=== PATIENT | male | born 1990 | race Caucasian/White ===

== ENCOUNTER 2019-04-21 07:27 | Emergency (ER) | payer BC ==
[2019-04-21] MEDS ORDERED: Acetaminophen 325 MG Tab PO ONE (07:41)
--- NOTE | 2019-04-21 07:55 | EDM.PDOC ---
ED [facility] GENERAL MEDICAL PROBLEM - General Chief Complaint: Chest Pain Stated Complaint: CHEST PAIN Time Seen by Provider: 04/21/19 07:52 Source of Information: Reports: Patient History Limitations: Reports: No Limitations - History of Present Illness INITIAL COMMENTS - FREE TEXT/NARRATIVE: Patient is a 29-year-old male with no past medical history presenting with a chief complaint of chest pain. Onset of chest pain was this morning after waking up. Pain is been ongoing for approximately 1 hour. Pain is located in the right side of the chest without radiation. Gradually got worse over time. Patient took ibuprofen with mild relief. Patient reports associated shortness of breath. Patient denies fevers, chills, coughing, nausea, vomiting, diaphoresis. Patient has no prior history of DVT or PE. Patient has no recent surgery or prolonged immobilization. Patient denies any drug use and states he has never had pain like this before. Patient denies any trauma to the chest. 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 Patient has no family history of cardiovascular disease or stroke. In addition to that documented in the HPI above, the additional ROS was obtained : Constitutional: Denies fevers or chills Eyes: Denies vision changes ENMT: Denies sore throat CV: Per HPI Resp: Per HPI GI: Denies vomiting or diarrhea : Denies painful urination MSK: Denies recent trauma Skin: Denies new rashes Neuro: Denies new numbness or tingling or weakness Endocrine: Denies unexpected weight loss Heme: Denies bleeding disorders I have reviewed the triage vital signs Const: Well nourished, well developed, appears stated age. Mild distress. Nontoxic in appearance. Eyes: PERRL, no conjunctival injection HENT: NCAT, Neck supple without meningismus CV: RRR, Warm, well-perfused extremities RESP: CTAB, Unlabored respiratory effort GI: soft, non-tender, non-distended, no masses MSK: No gross deformities appreciated Skin: Warm, dry. No rashes Neuro: Alert, vp & general counsel II-XII grossly intact. Sensation and motor function of extremities grossly intact. Psych: Appropriate mood and affect Assessment and plan: Patient is 29-year-old male presenting with chest pain. Patient has normal EKG. There is no evidence of ischemic changes. Patient labs were within normal limits other than slight hypokalemia. Patient had normal chest x-ray. At this point I do not suspect any pneumonia, pulmonary embolism, or ACS. Patient is PERC negative. Patient has a heart score of 1. Patient's pain improved while in the emergency department. Patient given strict return precautions. All questions dressed and answered. Patient agrees with plan. Chest Pain Pain Score (Numeric/FACES): 7 - Related Data Allergies Allergy/AdvReac Type Severity Reaction Status Date / Time Penicillins Allergy Cannot Verified 04/21/19 07:39 Remember Home Meds: Home Meds . [No Known Home Meds] 04/21/19 [History] Past Medical History - Past Health History Medical/Surgical History: Denies Medical/Surgical History - Infectious Disease History Infectious Disease History: Reports: None Social & Family History - Family History Family Medical History: Noncontributory - Tobacco Use Smoking Status *Q: Never Smoker - Caffeine Use Caffeine Use: Reports: Coffee - Recreational Drug Use Recreational Drug Use: No ED ROS GENERAL - Review of Systems Review Of Systems: See Below ED EXAM, GENERAL - Physical Exam Exam: See Below Course - Vital Signs Last Recorded V/S: Last Vital Signs Temp 36.3 C 04/21/19 07:40 Pulse 48 L 04/21/19 08:34 Resp 16 04/21/19 08:34 BP 107/70 04/21/19 08:34 Pulse Ox 100 04/21/19 08:34 - Orders/Labs/Meds Orders: Active Orders 24 hr Category Date Time Status EKG Documentation Completion [RC] STAT Care 04/21/19 07:46 Active Labs: Laboratory Tests 04/21/19 04/21/19 Range/Units 07:36 07:36 WBC 6.15 (4.0-11.0) K/uL RBC 4.38 L (4.50-5.90) M/uL Hgb 14.2 (13.0-17.0) g/dL Hct 40.8 (38.0-50.0) % MCV 93.2 (80.0-98.0) fL MCH 32.4 H (27.0-32.0) pg MCHC 34.8 (31.0-37.0) g/dL RDW Std Deviation 44.0 (28.0-62.0) fl RDW Coeff of Kaitlin 13 (11.0-15.0) % Plt Count 257 (150-400) K/uL MPV 10.40 (7.40-12.00) fL Neut % (Auto) 48.2 (48.0-80.0) % Lymph % (Auto) 37.1 (16.0-40.0) % [place] % (Auto) 12.4 (0.0-15.0) % Eos % (Auto) 2.1 (0.0-7.0) % Baso % (Auto) 0.2 (0.0-1.5) % Neut # (Auto) 3.0 (1.4-5.7) K/uL Lymph # (Auto) 2.3 (0.6-2.4) K/uL [place] # (Auto) 0.8 (0.0-0.8) K/uL Eos # (Auto) 0.1 (0.0-0.7) K/uL Baso # (Auto) 0.0 (0.0-0.1) K/uL Nucleated RBC % 0.0 /100WBC Nucleated RBCs # 0 K/uL Sodium 135 L (136-148) mmol/L Potassium 3.3 L (3.5-5.1) mmol/L Chloride 104 (98-107) mmol/L Carbon Dioxide 24.5 (21.0-32.0) mmol/L BUN 14 (7.0-18.0) mg/dL Creatinine 1.0 (0.8-1.3) mg/dL Est Cr Clr Drug Dosing 117.48 mL/min Estimated GFR (MDRD) > 60.0 ml/min Glucose 104 (74-106) mg/dL Calcium 8.3 L (8.5-10.1) mg/dL Total Bilirubin 0.3 (0.2-1.0) mg/dL AST 26 (15-37) IU/L ALT 50 (14-63) IU/L Alkaline Phosphatase 42 L (46-116) U/L Troponin I < 0.050 (0.000-0.056) ng/mL Total Protein 6.9 (6.4-8.2) g/dL Albumin 3.8 (3.4-5.0) g/dL Globulin 3.1 (2.6-4.0) g/dL Albumin/Globulin Ratio 1.2 (0.9-1.6) Meds: Medications Discontinued Medications Generic Name Dose Route Start Last Admin Trade Name Andi PRN Reason Stop Dose Admin Acetaminophen 650 mg 04/21/19 07:41 04/21/19 07:50 Tylenol PO 04/21/19 07:42 650 mg ONETIME ONE Administration Departure - Departure Time of Disposition: 08:39 Disposition: Home, Self-Care 01 Clinical Impression: Atypical chest pain Instructions: Nonspecific Chest Pain Referrals: PCP,None [Primary Care Provider] - Forms: ED Department Discharge Additional Instructions: The following information is given to patients seen in the emergency department who are being discharged to home. This information is to outline your options for follow-up care. We provide all patients seen in our emergency department with a follow-up referral. The need for follow-up, as well as the timing and circumstances, are variable depending upon the specifics of your emergency department visit. If you don't have a primary care physician on staff, we will provide you with a referral. We always advise you to contact your personal physician following an emergency department visit to inform them of the circumstance of the visit and for follow-up with them and/or the need for any referrals to a consulting specialist. The emergency department will also refer you to a specialist when appropriate. This referral assures that you have the opportunity for follow-up care with a specialist. All of these measure are taken in an effort to provide you with optimal care, which includes your follow-up. Under all circumstances we always encourage you to contact your private physician who remains a resource for coordinating your care. When calling for follow-up care, please make the office aware that this follow-up is from your recent emergency room visit. If for any reason you are refused follow-up, please contact the [facility] Emergency Department at and asked to speak to the emergency department charge nurse. Sepsis Event Note - Evaluation Sepsis Screening Result: No Definite Risk - Focused Exam Vital Signs: Vital Signs Temp Pulse Resp BP Pulse Ox 04/21/19 08:34 48 L 16 107/70 100 04/21/19 08:06 53 L 14 109/74 97 04/21/19 07:40 36.3 C 57 L 20 122/80 97 Date Exam was Performed: 04/21/19 Time Exam was Performed: 08:37 - My Orders Last 24 Hours: My Active Orders 04/21/19 07:46 EKG Documentation Completion [RC] STAT - Assessment/Plan Last 24 Hours: My Active Orders 04/21/19 07:46 EKG Documentation Completion [RC] STAT
--- NOTE | 2019-04-21 08:07 | CR ---
Chest: Portable view of the chest was obtained. Comparison: No prior chest x-ray. Heart size and mediastinum are normal. Lungs are clear. Bony structures are unremarkable. Impression: 1. Nothing acute is seen on portable chest x-ray. Diagnostic code #1 Study was dictated in [place] Standard Time
[2019-04-21 08:15] LABS: BLOOD UREA NITROGEN,BUN 14 mg/dL (7.0-18.0); CARBON DIOXIDE,CO2 24.5 mmol/L (21.0-32.0); CHLORIDE,CL 104 mmol/L (98-107); GLUCOSE RANDOM 104 mg/dL (74-106); POTASSIUM,K 3.3 mmol/L (3.5-5.1); SODIUM,NA 135 mmol/L (136-148)
== END 2019-04-21 08:50 | disposition home or self-care (01) ==
LOC: MW.ED 07:27
DX: R07.89 Other chest pain (principal); Z88.0 Allergy status to penicillin
CPT/HCPCS: 71045; 80053; 84484; 85025; 93005; 99285; A9270; 99284

== ENCOUNTER 2019-07-16 07:09 | Emergency (ER) | payer SELFPAY ==
[2019-07-16] MEDS: Famotidine 20 MG/2 ML SDV IVPUSH ONE (07:42)
[2019-07-16] MEDS: Ondansetron 4 MG/2 ML SDV IVPUSH ONE (07:42)
[2019-07-16] MEDS: Sodium Chloride 0.9% 1,000 ML IV ONE (07:42)
[2019-07-16] MEDS: Aluminum Hydroxide/Magnesium Hydroxide/Simethicone Susp 30 ML Cup PO ONE (07:43)
[2019-07-16] MEDS: Morphine 10 MG/ML Syringe IVPUSH ONE (08:01)
--- NOTE | 2019-07-16 08:01 | EDM.PDOC ---
ED [facility] GENERAL MEDICAL PROBLEM - General Chief Complaint: Abdominal Pain Stated Complaint: ABDOMINAL PAIN Time Seen by Provider: 07/16/19 08:00 Source of Information: Reports: Patient History Limitations: Reports: No Limitations - History of Present Illness INITIAL COMMENTS - FREE TEXT/NARRATIVE: Patient is 29-year-old male no significant past medical history presenting with chief complaint of abdominal pain. Patient states the abdominal pain started last night. The pain is located in epigastric region with radiation to the left upper quadrant. Pain is like a pressure sensation. Pain is not made worse by any particular time. Pain is associated with nausea and vomiting. Patient denies any fevers, cough, shortness of breath. Patient reports having a normal bowel movement yesterday. Patient reports he has passed gas numerous times today. Patient denies any history of similar pain. Patient took over-the -counter pain medication with little relief. Pmhx: None Pshx: None Family Hx: noncontributory Smoking history? no Etoh use? none Drug use? none In addition to that documented in the HPI above, the additional ROS was obtained : Constitutional: Denies fevers or chills Eyes: Denies vision changes ENMT: Denies sore throat CV: Denies chest pain Resp: Denies SOB GI: Per HPI : Denies painful urination MSK: Denies recent trauma Skin: Denies new rashes Neuro: Denies new numbness or tingling or weakness Endocrine: Denies unexpected weight loss Heme: Denies bleeding disorders I have reviewed the triage vital signs Const: Well nourished, well developed, appears stated age Eyes: PERRL, no conjunctival injection HENT: NCAT, Neck supple without meningismus CV: RRR, Warm, well-perfused extremities RESP: CTAB, Unlabored respiratory effort GI: soft, non-tender, non-distended, no masses MSK: No gross deformities appreciated Skin: Warm, dry. No rashes Neuro: Alert, scientific research manager II-XII grossly intact. Sensation and motor function of extremities grossly intact. Psych: Appropriate mood and affect Assessment and plan: Patient 29-year-old male presenting with abdominal pain. Patient's labs were unremarkable. Patient's emergency department stay was unremarkable. Patient had a CT scan performed for persistent abdominal pain requiring morphine for relief. CT scan demonstrated several gallstones in the neck of the gallbladder. Likely diagnosis symptomatic cholelithiasis there is no evidence of acute cholecystitis based on labs, vital signs, CT scan. No evidence of pancreatitis or hepatitis. Patient's pain improved and is tolerating p.o. The patient was referred to general surgery for follow-up care. Patient given return precautions and dietary education. All questions addressed and answered. Patient agrees with plan. abdomen Pain Score (Numeric/FACES): 8 - Related Data Allergies Allergy/AdvReac Type Severity Reaction Status Date / Time Penicillins Allergy Cannot Verified 07/16/19 07:25 Remember Home Meds: Home Meds . [No Known Home Meds] 04/21/19 [History] Past Medical History - Past Health History Medical/Surgical History: Denies Medical/Surgical History HEENT History: Reports: None Cardiovascular History: Reports: None Respiratory History: Reports: None Gastrointestinal History: Reports: None Genitourinary History: Reports: None Musculoskeletal History: Reports: None Neurological History: Reports: None Psychiatric History: Reports: None Endocrine/Metabolic History: Reports: None Hematologic History: Reports: None Immunologic History: Reports: None Oncologic (Cancer) History: Reports: None Dermatologic History: Reports: None - Infectious Disease History Infectious Disease History: Reports: Chicken Pox - Past Surgical History Head Surgeries/Procedures: Reports: None HEENT Surgical History: Reports: None Cardiovascular Surgical History: Reports: None Respiratory Surgical History: Reports: None GI Surgical History: Reports: None Male Surgical History: Reports: None Endocrine Surgical History: Reports: None Neurological Surgical History: Reports: None Musculoskeletal Surgical History: Reports: None Oncologic Surgical History: Reports: None Dermatological Surgical History: Reports: None Social & Family History - Family History Family Medical History: Noncontributory - Tobacco Use Smoking Status *Q: Never Smoker Second Hand Smoke Exposure: No - Caffeine Use Caffeine Use: Reports: Tea - Recreational Drug Use Recreational Drug Use: No ED ROS GENERAL - Review of Systems Review Of Systems: See Below ED EXAM, GI/ABD - Physical Exam Exam: See Below Course - Vital Signs Last Recorded V/S: Last Vital Signs Temp 36.0 C L 07/16/19 07:23 Pulse 52 L 07/16/19 09:01 Resp 18 07/16/19 09:01 BP 115/80 07/16/19 09:01 Pulse Ox 99 07/16/19 09:01 - Orders/Labs/Meds Orders: Active Orders 24 hr Category Date Time Status EKG Documentation Completion [RC] STAT Care 07/16/19 07:41 Active Chest 1V Frontal [CR] Stat Exams 07/16/19 07:32 Taken Labs: Laboratory Tests 07/16/19 07/16/19 07/16/19 Range/Units 07:40 07:40 07:40 WBC 10.45 (4.0-11.0) K/uL RBC 4.69 (4.50-5.90) M/uL Hgb 14.9 (13.0-17.0) g/dL Hct 43.9 (38.0-50.0) % MCV 93.6 (80.0-98.0) fL MCH 31.8 (27.0-32.0) pg MCHC 33.9 (31.0-37.0) g/dL RDW Std Deviation 43.1 (28.0-62.0) fl RDW Coeff of Kaitlin 13 (11.0-15.0) % Plt Count 254 (150-400) K/uL MPV 10.50 (7.40-12.00) fL Neut % (Auto) 70.7 (48.0-80.0) % Lymph % (Auto) 16.2 (16.0-40.0) % [place] % (Auto) 11.6 (0.0-15.0) % Eos % (Auto) 1.3 (0.0-7.0) % Baso % (Auto) 0.2 (0.0-1.5) % Neut # (Auto) 7.4 H (1.4-5.7) K/uL Lymph # (Auto) 1.7 (0.6-2.4) K/uL [place] # (Auto) 1.2 H (0.0-0.8) K/uL Eos # (Auto) 0.1 (0.0-0.7) K/uL Baso # (Auto) 0.0 (0.0-0.1) K/uL Nucleated RBC % 0.0 /100WBC Nucleated RBCs # 0 K/uL Lactate 1.2 (0.20-2.00) mmol/L Sodium 144 (136-148) mmol/L Potassium 4.6 (3.5-5.1) mmol/L Chloride 108 H (98-107) mmol/L Carbon Dioxide 27.0 (21.0-32.0) mmol/L BUN 17 (7.0-18.0) mg/dL Creatinine 1.0 (0.8-1.3) mg/dL Est Cr Clr Drug Dosing TNP Estimated GFR (MDRD) > 60.0 ml/min Glucose 106 (74-106) mg/dL Calcium 8.2 L (8.5-10.1) mg/dL Total Bilirubin 0.4 (0.2-1.0) mg/dL AST 30 (15-37) IU/L ALT 63 (14-63) IU/L Alkaline Phosphatase 48 (46-116) U/L Total Protein 7.1 (6.4-8.2) g/dL Albumin 3.9 (3.4-5.0) g/dL Globulin 3.2 (2.6-4.0) g/dL Albumin/Globulin Ratio 1.2 (0.9-1.6) Lipase 128 (73-393) U/L Meds: Medications Discontinued Medications Generic Name Dose Route Start Last Admin Trade Name Freq PRN Reason Stop Dose Admin Al Hydroxide/Mg Hydroxide 30 ml 07/16/19 07:28 07/16/19 07:43 Mag-Al Plus PO 07/16/19 07:29 30 ml ONETIME ONE Administration Famotidine 20 mg 07/16/19 07:28 07/16/19 07:42 Pepcid IVPUSH 07/16/19 07:29 20 mg ONETIME ONE Administration Sodium Chloride 1,000 mls @ 1,000 mls/hr 07/16/19 07:28 07/16/19 07:42 Normal Saline IV 07/16/19 08:27 1,000 mls/hr .Bolus ONE Administration Iopamidol 100 ml 07/16/19 08:50 07/16/19 08:51 Isovue-370 (76%) IVPUSH 07/16/19 08:51 100 ml ONETIME STA Administration Morphine Sulfate 8 mg 07/16/19 07:57 07/16/19 08:01 Morphine IVPUSH 07/16/19 07:58 8 mg ONETIME ONE Administration Ondansetron HCl 4 mg 07/16/19 07:28 07/16/19 07:42 Zofran IVPUSH 07/16/19 07:29 4 mg ONETIME ONE Administration Departure - Departure Time of Disposition: 09:10 Disposition: Home, Self-Care 01 Clinical Impression: Biliary colic - Discharge Information Instructions: Cholelithiasis Referrals: Sara Parra MD [Physician] - Babak Tay MD [Primary Care Provider] - Forms: ED Department Discharge Additional Instructions: The following information is given to patients seen in the emergency department who are being discharged to home. This information is to outline your options for follow-up care. We provide all patients seen in our emergency department with a follow-up referral. The need for follow-up, as well as the timing and circumstances, are variable depending upon the specifics of your emergency department visit. If you don't have a primary care physician on staff, we will provide you with a referral. We always advise you to contact your personal physician following an emergency department visit to inform them of the circumstance of the visit and for follow-up with them and/or the need for any referrals to a consulting specialist. The emergency department will also refer you to a specialist when appropriate. This referral assures that you have the opportunity for follow-up care with a specialist. All of these measure are taken in an effort to provide you with optimal care, which includes your follow-up. Under all circumstances we always encourage you to contact your private physician who remains a resource for coordinating your care. When calling for follow-up care, please make the office aware that this follow-up is from your recent emergency room visit. If for any reason you are refused follow-up, please contact the [facility] Emergency Department at and asked to speak to the emergency department charge nurse. Sepsis Event Note - Evaluation Sepsis Screening Result: No Definite Risk - Focused Exam Vital Signs: Vital Signs Temp Pulse Resp BP Pulse Ox 07/16/19 09:01 52 L 18 115/80 99 07/16/19 08:10 52 L 20 115/59 L 99 07/16/19 07:23 36.0 C L 56 L 18 138/89 98 Date Exam was Performed: 07/16/19 Time Exam was Performed: 10:42 - My Orders Last 24 Hours: My Active Orders 07/16/19 07:32 Chest 1V Frontal [CR] Stat 07/16/19 07:41 EKG Documentation Completion [RC] STAT - Assessment/Plan Last 24 Hours: My Active Orders 07/16/19 07:32 Chest 1V Frontal [CR] Stat 07/16/19 07:41 EKG Documentation Completion [RC] STAT
[2019-07-16 08:04] LABS: BLOOD UREA NITROGEN,BUN 17 mg/dL (7.0-18.0); CHLORIDE,CL 108 mmol/L (98-107); GLUCOSE RANDOM 106 mg/dL (74-106); LIPASE 128 U/L (73-393); POTASSIUM,K 4.6 mmol/L (3.5-5.1); SODIUM,NA 144 mmol/L (136-148)
[2019-07-16] MEDS: Iopamidol 755 Mg/ML 100 ML Bottle IVPUSH STA (08:51)
--- NOTE | 2019-07-16 09:03 | CT ---
CT abdomen and pelvis Technique: Multiple axial sections were obtained from above the dome of the diaphragm inferiorly through the pubic symphysis. Intravenous contrast was utilized. No oral contrast has been given. Comparison: No prior abdominal imaging is available. Findings: Visualized lung bases showed nothing acute. Liver contains no focal abnormality. 2 gallstones are noted within the gallbladder neck. Smaller gallstone measures 1.1 cm in size. Spleen appears within normal limits. Adrenal glands show no nodule. Pancreas appears within normal limits. 3 small low density findings are seen within the left kidney. Largest measures 7 mm and findings most likely due to small cysts. Cyst noted within the right kidney measuring 1.1 cm. No additional abnormalities are appreciated within the kidneys. Aorta shows no aneurysm. No retroperitoneal adenopathy or mesenteric abnormalities are seen. Appendix is seen and is normal in size. No pelvic mass or adenopathy is seen. No free fluid or inflammatory change is seen. Bone window settings were reviewed which showed no acute osseous finding. Impression: 1. Small cysts within both kidneys. 2. 2 gallstones within the gallbladder neck. 3. No additional abnormality is identified on CT study of the abdomen and pelvis. Diagnostic code #2 Study was dictated in MDT
--- NOTE | 2019-07-17 07:46 | CR ---
EXAM DATE: 07/16/19 PATIENT'S AGE: 29 Patient: KAMERON WRIGHT Facility: [facility] Site . Site : [id number] Study: XRay-Chest -07/16/2019 7:55:54 AM Ordering Physician: Shaneka Espinosa Final Report: Exam: Single-view chest. INDICATION: Epigastric pain and vomiting. COMPARISON: None. FINDINGS: The lungs are clear. Heart size and pulmonary vasculature are normal. IMPRESSION: Clear lungs. Dictated by Miguel Ángel Ibarra MD @ Jul 16 2019 8:18AM Signed by: Miguel Ángel Ibarra MD @07/16/2019 8:18:55 AM (Electronic Signature) Report Signed by Proxy. [facility]
== END 2019-07-16 09:23 | disposition home or self-care (01) ==
LOC: MW.ED 07:09
DX: K80.50 Calculus of bile duct without cholangitis or cholecystitis without obstruction (principal); Z88.0 Allergy status to penicillin
CPT/HCPCS: 36415; 71045; 74177; 80053; 83605; 83690; 85025; 93005; 96361; 96374; 96375; 99285; A9270; J2270; J2405; J7030; Q9967; S0028; 99284; J3490

== ENCOUNTER 2019-07-21 07:42 | Day surgery (SDC) | payer SELFPAY ==
[~2019-07-21 07:42] MED LIST: Bupivacaine 0.5% 30 ML SDV ONE; Clindamycin Phosphate in D5W 600 MG in Premix Bag 1 BAG IV ONE; Lactated Ringers 1,000 ML IV SCH; Midazolam 1 MG/ML 2 ML SDV ONE; Ondansetron 4 MG/2 ML SDV IVPUSH ONE; Promethazine 25 MG/ML SDV IM ONE; Propofol 200 MG/20 ML SDV ONE; Rocuronium 100 MG/10 ML Syringe ONE; Sodium Chloride 0.9% 10 ML SDV IV PRN; Sodium Chloride 0.9% 10 ML Syringe FLUSH PRN; Sodium Chloride 0.9% 2.5 ML Syringe FLUSH PRN; Sodium Chloride 0.9% 20 ML ONE; Succinylcholine/Sod PF 100 MG/5 ML SYRINGE IV ONE; ePHEDrine 50 MG/ML SDV ONE; fentaNYL 100 MCG/2 ML SDV IVPUSH PRN; fentaNYL 250 MCG/5 ML SDV ONE
[2019-07-21] MEDS ORDERED: Clindamycin Phosphate in D5W 50 ML ONE (08:23)
--- NOTE | 2019-07-21 08:43 | PCM.PREANE ---
Preanesthetic Assessment - Anesthesia/Transfusion/Family Hx Anesthesia History: Prior Anesthesia Without Reaction Family History of Anesthesia Reaction: No Transfusion History: No Prior Transfusion(s) Intubation History: Unknown - Review of Systems General: No Symptoms Pulmonary: No Symptoms Cardiovascular: No Symptoms Gastrointestinal: No Symptoms Neurological: No Symptoms Other: Reports: None - Physical Assessment Vital Signs: Last Vital Signs Temp 36.1 C 07/21/19 08:00 Pulse 56 L 07/21/19 08:00 Resp 16 07/21/19 08:00 BP 112/80 07/21/19 08:00 Pulse Ox 96 07/21/19 08:00 Height: 6 ft Weight: 105.687 kg ASA Class: 2 Mental Status: Alert & Oriented x3 Airway Class: Mallampati = 2 Dentition: Reports: Normal Dentition Thyro-Mental Finger Breadths: 3 Mouth Opening Finger Breadths: 3 ROM/Head Extension: Full Lungs: Clear to Auscultation, Normal Respiratory Effort Cardiovascular: Regular Rate, Regular Rhythm - Allergies Allergies/Adverse Reactions: Allergies Allergy/AdvReac Type Severity Reaction Status Date / Time Penicillins Allergy Airway Verified 07/20/19 14:22 Tightness - Blood Blood Available: No - Anesthesia Plan Pre-Op Medication Ordered: None - Acknowledgements Anesthesia Type Planned: General Anesthesia Pt an Appropriate Candidate for the Planned Anesthesia: Yes Alternatives and Risks of Anesthesia Discussed w Pt/Guardian: Yes Pt/Guardian Understands and Agrees with Anesthesia Plan: Yes PreAnesthesia Questionnaire - Past Health History Medical/Surgical History: Denies Medical/Surgical History HEENT History: Reports: None Cardiovascular History: Reports: None Respiratory History: Reports: None Gastrointestinal History: Reports: Cholelithiasis Genitourinary History: Reports: Renal Calculus Other Genitourinary History: hx of passing kidney stone Musculoskeletal History: Reports: Fracture Other Musculoskeletal History: hx of fx jaw- has hardware Neurological History: Reports: None Psychiatric History: Reports: ADHD Endocrine/Metabolic History: Reports: Obesity/BMI 30+ (BMI 31.6) Hematologic History: Reports: None Immunologic History: Reports: None Oncologic (Cancer) History: Reports: None Dermatologic History: Reports: None - Infectious Disease History Infectious Disease History: Reports: Chicken Pox - Past Surgical History Head Surgeries/Procedures: Reports: None HEENT Surgical History: Reports: Other (See Below) Other HEENT Surgeries/Procedures: ORIF fx jaw- has plates - SUBSTANCE USE Smoking Status *Q: Never Smoker Recreational Drug Use History: No - HOME MEDS Home Medications: Home Meds Ondansetron [Zofran] 4 mg PO ASDIRECTED PRN 07/20/19 [History] oxyCODONE HCl/Acetaminophen [Percocet 5-325 mg Tablet] 0 tab PO ASDIRECTED PRN 07/20/19 [History] - CURRENT (IN HOUSE) MEDS Current Meds: Current Medications Fentanyl (Sublimaze) 50 mcg IVPUSH Q5M PRN PRN Reason: Pain (severe 7-10) Stop: 07/22/19 07:16 Lactated Ringer's (Ringers, Lactated) 1,000 mls @ 125 mls/hr IV ASDIRECTED ESHA Last Admin: 07/21/19 08:22 Dose: 125 mls/hr Sodium Chloride (Saline Flush) 10 ml FLUSH ASDIRECTED PRN PRN Reason: Keep Vein Open Sodium Chloride (Saline Flush) 2.5 ml FLUSH ASDIRECTED PRN PRN Reason: Keep Vein Open Sodium Chloride (Normal Saline) 10 ml IV ASDIRECTED PRN PRN Reason: IV Use Discontinued Medications Bupivacaine HCl (Marcaine 0.5%) Confirm Administered Dose 30 ml .ROUTE .STK-MED ONE Stop: 07/21/19 07:40 Ephedrine Sulfate (Ephedrine Sulfate) Confirm Administered Dose 50 mg .ROUTE .STK-MED ONE Stop: 07/21/19 07:29 Fentanyl (Sublimaze) Confirm Administered Dose 250 mcg .ROUTE .STK-MED ONE Stop: 07/21/19 07:25 Clindamycin Phosphate 600 mg/ (Premix) 50 mls @ 100 mls/hr IV ONETIME ONE Stop: 07/20/19 17:14 Sodium Chloride (Normal Saline) Confirm Administered Dose 20 mls @ as directed .ROUTE .STK-MED ONE Stop: 07/21/19 07:29 Clindamycin Phosphate (Cleocin In D5w) Confirm Administered Dose 50 mls @ as directed .ROUTE .STK-MED ONE Stop: 07/21/19 08:24 Midazolam HCl (Versed 1 Mg/Ml) Confirm Administered Dose 2 mg .ROUTE .STK-MED ONE Stop: 07/21/19 07:24 Ondansetron HCl (Zofran) 4 mg IVPUSH ONETIME ONE Stop: 07/21/19 07:16 Promethazine HCl (Phenergan) 12.5 mg IM ONETIME ONE Stop: 07/21/19 07:16 Propofol (Diprivan 20 Ml) Confirm Administered Dose 200 mg .ROUTE .STK-MED ONE Stop: 07/21/19 07:24 Rocuronium [place] (Zemuron) Confirm Administered Dose 100 mg .ROUTE .STK-MED ONE Stop: 07/21/19 07:29
[2019-07-21] MEDS ORDERED: Scopolamine 1.5 MG Transdermal Patch ONE (08:45)
[2019-07-21] MEDS ORDERED: Scopolamine 1.5 MG Transdermal Patch TOP ONE (09:17)
[2019-07-21] MEDS ORDERED: Glycopyrrolate 0.2 MG/ML SDV ONE (10:31)
[2019-07-21] MEDS ORDERED: Ketorolac 30 MG/ML SDV ONE (10:46)
[2019-07-21] MEDS ORDERED: HYDROmorphone 2 MG/ML Syringe IVPUSH PRN (11:04)
[2019-07-21] MEDS ORDERED: Acetaminophen/oxyCODONE 325-5 MG Tab PO PRN (11:23)
[2019-07-21] MEDS ORDERED: Cyclobenzaprine 5 MG Tab PO PRN (11:23)
--- NOTE | 2019-07-21 11:23 | PCM.OPNOTE ---
- General Post-Op/Procedure Note Date of Surgery/Procedure: 07/21/19 Operative Procedure(s): Laparoscopic cholecystectomy Findings: Mildly distended gallbladder encased in inflamed fat and omentum. Pre Op Diagnosis: Symptomatic cholelithiasis Post-Op Diagnosis: same Anesthesia Technique: General ET Tube Primary Surgeon: Sara Parra Fluid Replacement, Intraop: 1,300 Output, Urine Amount: 220 EBL in mLs: 10 Condition: Good Free Text/Narrative:: Intake & Output 07/20/19 07/21/19 07/21/19 22:59 06:59 14:59 Output Total 220 Balance -220
[2019-07-21] MEDS: fentaNYL 100 MCG/2 ML SDV IVPUSH PRN ×2 (11:36→11:55)
--- NOTE | 2019-07-21 12:17 | PCM.POSTAN ---
POST ANESTHESIA ASSESSMENT - MENTAL STATUS Mental Status: Alert, Oriented - VITAL SIGNS Vital Signs: Last Vital Signs Temp 36.7 C 07/21/19 11:08 Pulse 58 L 07/21/19 12:09 Resp 19 07/21/19 12:09 BP 118/82 07/21/19 12:09 Pulse Ox 95 07/21/19 12:09 - RESPIRATORY Respiratory Status: Respiratory Rate WNL, Airway Patent, O2 Saturation Stable - CARDIOVASCULAR CV Status: Pulse Rate WNL, Blood Pressure Stable - GASTROINTESTINAL GI Status: No Symptoms - PAIN Pain Score: 2 - POST OP HYDRATION Hydration Status: Adequate & Stable - OBSERVATIONS Free Text/Narrative:: No anesthesia problems
--- NOTE | 2019-07-21 13:36 | OR ---
SURGEON: SARA KHAN MD DATE OF PROCEDURE: 07/21/2019 PREOPERATIVE DIAGNOSIS: Symptomatic cholelithiasis. POSTOPERATIVE DIAGNOSIS: Symptomatic cholelithiasis. PROCEDURE PERFORMED: Laparoscopic cholecystectomy. PRIMARY SURGEON: Dr. Sara Khan. ANESTHESIA: General endotracheal anesthesia. FLUIDS: 1300 mL of crystalloid. ESTIMATED BLOOD LOSS: 10 mL. URINE OUTPUT: 220 mL. FINDINGS: Slightly enlarged gallbladder encased in a thickened fat along the proximal half. COMPLICATIONS: None. INDICATIONS: The patient is a 29-year-old male who presents with symptomatic cholelithiasis. He is having to take continual narcotics to control his pain. The decision was made to proceed with a laparoscopic, possible open, cholecystectomy. I explained the procedure, expected perioperative course, and risks including bleeding, infection, or damage to surrounding structures. The patient verbalized understanding and wishes to proceed. PROCEDURE IN DETAIL: The patient was brought into the OR and placed on the OR table in supine position. A time-out was completed verifying the patient's name, age, date of , allergies, and procedure to be performed. General endotracheal anesthesia was induced. The left arm was tucked the patient's side and a Gomez catheter placed. The abdomen was prepped and draped in usual standard fashion. I anesthetized the infraumbilical fold with 0.5% Marcaine plain. An #11 blade was used to make an incision along the infraumbilical fold. Cautery was used to dissect down to the level of the subcutaneous fat. I then bluntly dissected down to the level of the fascia. The fascia was elevated with Randall's and incised sharply with curved Rand scissors. I identified the posterior rectus sheath. This was elevated and incised sharply as well. Hemostat was used to open up the peritoneum. Entry into the abdomen was palpated digitally. Stay sutures were placed on either side of the fascia using 0 Vicryl. A 12 mm Betzaida trocar was placed into the abdomen and the abdomen insufflated. A 5-mm 30 degree scope was inserted in the abdomen. I inspected the area underneath my initial trocar placement. No damage to surrounding structures was noted. The patient was placed in reverse Trendelenburg position and airplaned slightly to the left. 5 mm trocars were placed in the following locations under direct visualization; one in the epigastric area, one in the right flank, and one 2 fingerbreadths below the right subcostal margin in the midclavicular line. The dome of the gallbladder was grasped and elevated cranially. The proximal half of the gallbladder was encased in thickened and inflamed fat as well as omentum. Using gentle blunt dissection as well as hook cautery, I was able to take down this fat and free it from the surrounding structures. I identified the infundibulum and began dissection along this area. I identified the node of Calot and I dissected out my cystic duct and artery. I then dissected one-third of the way up the cystic plate. Once my critical view was achieved, I doubly clipped and ligated my cystic duct and artery. I then used electrocautery and blunt dissection to separate the gallbladder from the gallbladder fossa. About mcfp up my dissection, a small vascular structure was noted to be going into the gallbladder. This was cleared away, then doubly clipped and ligated. I then completed my dissection up the distal gallbladder fossa. A small rent was made in the gallbladder and bile was spilled in the abdomen. Once the gallbladder was freed from its attachments, it was placed in an Endo Catch bag and removed through the infraumbilical port site. My 12 mm Betzaida trocar was placed back in the abdomen and I reinspected my operative field. It was irrigated with normal saline, which was then suctioned out. There was no evidence of bile leakage. The edges of the omentum which were stuck to the gallbladder were slightly oozy. Surgicel was placed along this, which achieve hemostasis. The 5 mm trocars were removed under direct visualization. The abdomen allowed to desufflate. The 12 mm Betzaida trocar was removed as well. The fascia at the infraumbilical port site was closed with interrupted 0 Vicryl sutures. The subcutaneous fat layer was closed with interrupted 3-0 Vicryl suture. The skin was closed with a running 4-0 Monocryl stitch. The 5 mm trocar sites were closed with interrupted 4-0 Monocryl sutures. Steri-Strips and sterile dressings were applied. The patient tolerated the procedure well and was transferred to the PACU in stable condition. STEPHANIE SCHMIDT /[id number]
--- NOTE | 2019-07-21 13:47 | PCM48HPAN ---
Post Anesthesia Note - EVALUATION WITHIN 48HRS OF ANESTHETIC Vital Signs in Normal Range: Yes Patient Participated in Evaluation: Yes Respiratory Function Stable: Yes Airway Patent: Yes Cardiovascular Function Stable: Yes Hydration Status Stable: Yes Pain Control Satisfactory: Yes Nausea and Vomiting Control Satisfactory: Yes Mental Status Recovered: Yes Vital Signs: Last Vital Signs Temp 36.2 C 07/21/19 12:15 Pulse 72 07/21/19 13:39 Resp 16 07/21/19 13:39 BP 107/71 07/21/19 13:39 Pulse Ox 95 07/21/19 13:39 - COMMENTS/OBSERVATIONS Free Text/Narrative:: No anesthesia problems
== END 2019-07-21 14:15 | disposition home or self-care (01) ==
LOC: MW.SDS 07:42
PROVIDERS: ATTEND Surgery
DX: K80.12 Calculus of gallbladder with acute and chronic cholecystitis without obstruction (principal); Z88.0 Allergy status to penicillin
CPT/HCPCS: 47562; A9270; J0330; J1170; J1885; J2250; J2405; J2704; J3010; J3490; J7120; S0077; 00790; 88304

== ENCOUNTER 2020-05-23 10:39 | Emergency (ER) | payer SELFPAY ==
[2020-05-23] MEDS ORDERED: Sodium Chloride 0.9% 2.5 ML Syringe FLUSH PRN (10:50)
[2020-05-23] MEDS ORDERED: Sodium Chloride 0.9% 10 ML Syringe FLUSH PRN (10:50)
[2020-05-23] MEDS ORDERED: Sodium Chloride 0.9% 1,000 ML IV ONE (10:50)
--- NOTE | 2020-05-23 10:52 | EDM.PDOC ---
ED HPI GENERAL MEDICAL PROBLEM - General Chief Complaint: Abdominal Pain Stated Complaint: EMS ARRIVAL Time Seen by Provider: 05/23/20 10:45 Source of Information: Reports: Patient History Limitations: Reports: No Limitations - History of Present Illness INITIAL COMMENTS - FREE TEXT/NARRATIVE: 30-year-old male past surgical history cholecystectomy presents for right lower quadrant pain waking patient from sleep around 4:30 AM today. Patient states that he was in normal state of health yesterday. He denies any recent fevers or illnesses. He notes feeling nauseated and has had 1 episode of vomiting prior to arrival. He notes that the pain is primarily in his right lower quadrant but radiates to the generalized abdomen. No changes in bowel habits. No urinary symptoms. He was given fentanyl 50 mcg and Zofran 4 mg prior to arrival by EMS. He states that this did help with his pain but it started to return. - Related Data Allergies Allergy/AdvReac Type Severity Reaction Status Date / Time Penicillins Allergy Airway Verified 05/23/20 11:04 Tightness Home Meds: Home Meds Ondansetron [Zofran] 4 mg PO ASDIRECTED PRN 07/20/19 [History] oxyCODONE HCl/Acetaminophen [Percocet 5-325 mg Tablet] 0 tab PO ASDIRECTED PRN 07/20/19 [History] Dicyclomine [Bentyl] 10 mg PO TID PRN #20 cap 05/23/20 [Rx] Past Medical History - Past Health History Medical/Surgical History: Denies Medical/Surgical History HEENT History: Reports: None Cardiovascular History: Reports: None Respiratory History: Reports: None Gastrointestinal History: Reports: Cholelithiasis Genitourinary History: Reports: Renal Calculus Other Genitourinary History: hx of passing kidney stone Musculoskeletal History: Reports: Fracture Other Musculoskeletal History: hx of fx jaw- has hardware Neurological History: Reports: None Psychiatric History: Reports: ADHD Endocrine/Metabolic History: Reports: Obesity/BMI 30+ (BMI 31.6) Hematologic History: Reports: None Immunologic History: Reports: None Oncologic (Cancer) History: Reports: None Dermatologic History: Reports: None - Infectious Disease History Infectious Disease History: Reports: Chicken Pox - Past Surgical History Head Surgeries/Procedures: Reports: None HEENT Surgical History: Reports: Other (See Below) Other HEENT Surgeries/Procedures: ORIF fx jaw- has plates Social & Family History - Family History Family Medical History: No Pertinent Family History - Caffeine Use Caffeine Use: Reports: Tea ED ROS GENERAL - Review of Systems Review Of Systems: Comprehensive ROS is negative, except as noted in HPI. ED EXAM, GENERAL - Physical Exam Exam: See Below Exam Limited By: No Limitations General Appearance: Alert, WD/WN, No Apparent Distress Throat/Mouth: Normal Voice, No Airway Compromise Head: Atraumatic, Normocephalic Respiratory/Chest: No Respiratory Distress, Lungs Clear, Normal Breath Sounds, No Accessory Muscle Use Cardiovascular: Normal Peripheral Pulses, Regular Rate, Rhythm GI/Abdominal: Soft, Other (RLQ TTP with guarding) Extremities: Normal Inspection Neurological: Alert Psychiatric: Normal Affect, Normal Mood Skin Exam: Warm, Dry, Intact, Normal Color Course - Vital Signs Last Recorded V/S: Last Vital Signs Temp 97.4 F 05/23/20 12:34 Pulse 58 L 05/23/20 12:34 Resp 16 05/23/20 12:34 BP 122/86 05/23/20 12:34 Pulse Ox 99 05/23/20 12:34 - Orders/Labs/Meds Orders: Active Orders 24 hr Category Date Time Status Sodium Chloride 0.9% [Saline Flush] Med 05/23/20 10:50 Active 10 ml FLUSH ASDIRECTED PRN Sodium Chloride 0.9% [Saline Flush] Med 05/23/20 10:50 Active 2.5 ml FLUSH ASDIRECTED PRN Saline Lock Insert [OM.PC] Stat Oth 05/23/20 10:50 Ordered Medication Orders Sodium Chloride (Saline Flush) 10 ml FLUSH ASDIRECTED PRN PRN Reason: Keep Vein Open Last Admin: 05/23/20 11:12 Dose: 10 ml Documented by: [id number] Sodium Chloride (Saline Flush) 2.5 ml FLUSH ASDIRECTED PRN PRN Reason: Keep Vein Open Last Admin: 05/23/20 11:12 Dose: 2.5 ml Documented by: [id number] Labs: Laboratory Tests 05/23/20 05/23/20 05/23/20 Range/Units 11:10 11:10 12:27 WBC 6.76 (4.0-11.0) K/uL RBC 4.47 L (4.50-5.90) M/uL Hgb 14.6 (13.0-17.0) g/dL Hct 42.7 (38.0-50.0) % MCV 95.5 (80.0-98.0) fL MCH 32.7 H (27.0-32.0) pg MCHC 34.2 (31.0-37.0) g/dL RDW Std Deviation 44.8 (28.0-62.0) fl RDW Coeff of Kaitlin 13 (11.0-15.0) % Plt Count 242 (150-400) K/uL MPV 10.10 (7.40-12.00) fL Neut % (Auto) 59.9 (48.0-80.0) % Lymph % (Auto) 27.2 (16.0-40.0) % Hunt % (Auto) 11.5 (0.0-15.0) % Eos % (Auto) 1.3 (0.0-7.0) % Baso % (Auto) 0.1 (0.0-1.5) % Neut # (Auto) 4.0 (1.4-5.7) K/uL Lymph # (Auto) 1.8 (0.6-2.4) K/uL Hunt # (Auto) 0.8 (0.0-0.8) K/uL Eos # (Auto) 0.1 (0.0-0.7) K/uL Baso # (Auto) 0.0 (0.0-0.1) K/uL Nucleated RBC % 0.0 /100WBC Nucleated RBCs # 0 K/uL Sodium 137 (136-148) mmol/L Potassium 4.3 (3.5-5.1) mmol/L Chloride 104 (98-107) mmol/L Carbon Dioxide 25.8 (21.0-32.0) mmol/L BUN 15 (7.0-18.0) mg/dL Creatinine 0.9 (0.8-1.3) mg/dL Est Cr Clr Drug Dosing TNP Estimated GFR (MDRD) > 60.0 ml/min Glucose 88 (74-106) mg/dL Calcium 7.9 L (8.5-10.1) mg/dL Total Bilirubin 0.4 (0.2-1.0) mg/dL AST 17 (15-37) IU/L ALT 34 (14-63) IU/L Alkaline Phosphatase 44 L (46-116) U/L Total Protein 7.3 (6.4-8.2) g/dL Albumin 3.7 (3.4-5.0) g/dL Globulin 3.6 (2.6-4.0) g/dL Albumin/Globulin Ratio 1.0 (0.9-1.6) Lipase 131 (73-393) U/L Urine Color YELLOW Urine Appearance CLEAR Urine pH 6.0 (5.0-8.0) Ur Specific [place] <= 1.005 (1.001-1.035) Urine Protein NEGATIVE (NEGATIVE) mg/dL Urine Glucose (UA) NEGATIVE (NEGATIVE) mg/dL Urine Ketones NEGATIVE (NEGATIVE) mg/dL Urine Occult Blood NEGATIVE (NEGATIVE) Urine Nitrite NEGATIVE (NEGATIVE) Urine Bilirubin NEGATIVE (NEGATIVE) Urine Urobilinogen 0.2 (<2.0) EU/dL Ur Leukocyte Esterase NEGATIVE (NEGATIVE) Meds: Medications Generic Name Dose Route Start Last Admin Trade Name Fresharmaine PRN Reason Stop Dose Admin Sodium Chloride 10 ml 05/23/20 10:50 05/23/20 11:12 Saline Flush FLUSH 10 ml ASDIRECTED PRN Administration Keep Vein Open Sodium Chloride 2.5 ml 05/23/20 10:50 05/23/20 11:12 Saline Flush FLUSH 2.5 ml ASDIRECTED PRN Administration Keep Vein Open Discontinued Medications Generic Name Dose Route Start Last Admin Trade Name Freq PRN Reason Stop Dose Admin Sodium Chloride 1,000 mls @ 999 mls/hr 05/23/20 10:50 05/23/20 11:11 Normal Saline IV 05/23/20 11:50 999 mls/hr .Bolus ONE Administration Iopamidol 100 ml 05/23/20 12:13 05/23/20 12:26 Isovue-370 (76%) IVPUSH 05/23/20 12:14 100 ml ONETIME STA Administration Morphine Sulfate 4 mg 05/23/20 10:55 05/23/20 11:11 Morphine IVPUSH 05/23/20 10:56 4 mg ONETIME ONE Administration Ondansetron HCl 4 mg 05/23/20 10:55 05/23/20 11:11 Zofran IVPUSH 05/23/20 10:56 4 mg ONETIME ONE Administration - Re-Assessments/Exams Free Text/Narrative Re-Assessment/Exam: 05/23/20 10:54 We will get labs as well as CT abdomen pelvis to r/o appendicitis. We will follow up results and disposition accordingly. 05/23/20 13:[address] scan is normal. Will discharge with symptomatic medications. PMD follow-up discussed. Return precautions discussed. Departure - Departure Time of Disposition: 13:16 Disposition: Home, Self-Care 01 Condition: Good Clinical Impression: Abdominal pain Qualifiers: Abdominal location: generalized Qualified Code(s): R10.84 - Generalized abdominal pain - Discharge Information Prescriptions: Dicyclomine [Bentyl] 10 mg PO TID PRN #20 cap PRN Reason: Abdominal Pain Referrals: Mag Thomas MD [Primary Care Provider] - Forms: ED Department Discharge Additional Instructions: The following information is given to patients seen in the emergency department who are being discharged to home. This information is to outline your options for follow-up care. We provide all patients seen in our emergency department with a follow-up referral. The need for follow-up, as well as the timing and circumstances, are variable depending upon the specifics of your emergency department visit. If you don't have a primary care physician on staff, we will provide you with a referral. We always advise you to contact your personal physician following an emergency department visit to inform them of the circumstance of the visit and for follow-up with them and/or the need for any referrals to a consulting specialist. The emergency department will also refer you to a specialist when appropriate. This referral assures that you have the opportunity for follow-up care with a specialist. All of these measure are taken in an effort to provide you with optimal care, which includes your follow-up. Under all circumstances we always encourage you to contact your private physician who remains a resource for coordinating your care. When calling for follow-up care, please make the office aware that this follow-up is from your recent emergency room visit. If for any reason you are refused follow-up, please contact the [facility] Emergency Department at and asked to speak to the emergency department charge nurse. Please follow up with your primary care physician. If you do not have a primary care physician, see below: [facility] [address] [place] [address], [place] [address] [facility] [address] [place] [address] [facility] [address] [place] [address] Sepsis Event Note (ED) - Focused Exam Vital Signs: Vital Signs Temp Pulse Resp BP Pulse Ox 05/23/20 12:34 97.4 F 58 L 16 122/86 99 05/23/20 11:13 58 L 18 116/81 98 05/23/20 10:39 95.7 F L 70 18 115/88 98 - My Orders Last 24 Hours: My Active Orders 05/23/20 10:50 Sodium Chloride 0.9% [Saline Flush] 10 ml FLUSH ASDIRECTED PRN Sodium Chloride 0.9% [Saline Flush] 2.5 ml FLUSH ASDIRECTED PRN Saline Lock Insert [OM.PC] Stat - Assessment/Plan Last 24 Hours: My Active Orders 05/23/20 10:50 Sodium Chloride 0.9% [Saline Flush] 10 ml FLUSH ASDIRECTED PRN Sodium Chloride 0.9% [Saline Flush] 2.5 ml FLUSH ASDIRECTED PRN Saline Lock Insert [OM.PC] Stat
[2020-05-23] MEDS ORDERED: Ondansetron 4 MG/2 ML SDV IVPUSH ONE (10:55)
[2020-05-23] MEDS ORDERED: Morphine 4 MG/ML Syringe IVPUSH ONE (10:55)
[2020-05-23 11:51] LABS: BLOOD UREA NITROGEN,BUN 15 mg/dL (7.0-18.0); CARBON DIOXIDE,CO2 25.8 mmol/L (21.0-32.0); CHLORIDE,CL 104 mmol/L (98-107); GLUCOSE RANDOM 88 mg/dL (74-106); LIPASE 131 U/L (73-393); POTASSIUM,K 4.3 mmol/L (3.5-5.1); SODIUM,NA 137 mmol/L (136-148)
[2020-05-23] MEDS ORDERED: Iopamidol 755 Mg/ML 100 ML Bottle IVPUSH STA (12:13)
--- NOTE | 2020-05-23 13:00 | CT ---
INDICATION: Right-sided abdomen pain. TECHNIQUE: CT abdomen and pelvis acquired with 100 cc Isovue 370 IV contrast. COMPARISON: July 16, 2019. FINDINGS: Lower chest: Unremarkable. Liver: Unremarkable. Normal in size and attenuation. No masses. Gallbladder and bile ducts: Status post cholecystectomy. No biliary dilatation. Pancreas: Unremarkable. No mass or inflammation. Spleen: Unremarkable. Normal in size. No masses. Adrenal glands: Unremarkable. No nodules. Kidneys: Unremarkable. No masses, stones, or hydronephrosis. GI tract: Unremarkable. Normal in caliber. No sign of mass or inflammation. Normal appendix. Vasculature: Unremarkable. Mesenteric arteries are patent. Lymph nodes: No lymphadenopathy. Omentum/Peritoneum/Abdominal Wall: Unremarkable. No sign of mass or infiltration. No free air or significant free fluid. Pelvis: Unremarkable. Bones: Unremarkable for age. IMPRESSION: Unremarkable CT of the abdomen and pelvis. No findings to explain right-sided abdomen pain. Please note that all CT scans at this facility use dose modulation, iterative reconstruction, and/or weight-based dosing when appropriate to reduce radiation dose to as low as reasonably achievable. Dictated by Sincere Hood MD @ May 23 2020 12:45PM Signed by Dr. Sincere Hood @ May 23 2020 12:58PM
== END 2020-05-23 13:47 | disposition home or self-care (01) ==
LOC: MW.ED 10:39
DX: R10.84 Generalized abdominal pain (principal); E66.9 Obesity, unspecified; Z88.0 Allergy status to penicillin
CPT/HCPCS: 36415; 74177; 80053; 81003; 83690; 85025; 96374; 96375; 99285; J2270; J2405; J7030; Q9967; 99284